=== PATIENT | male | born 1950 | race Caucasian/White ===

== ENCOUNTER 2017-11-01 18:58 | Emergency (ER) | payer OTHER ==
[2017-11-01] MEDS: HYDROCODONE/APAP (5/325) TAB PO (22:53)
[2017-11-01] MEDS: ERYTHROMYCIN 1 GM OPH OINT LEFT EYE (23:11)
== END 2017-11-02 00:01 | disposition home or self-care (01) ==
LOC: FTE 11-02 00:01
DX: H10.32 Unspecified acute conjunctivitis, left eye (principal); F17.210 Nicotine dependence, cigarettes, uncomplicated
CPT/HCPCS: 99283; Z7502

== ENCOUNTER 2017-11-02 16:04 | Emergency (ER) | payer OTHER ==
[2017-11-02] MEDS: OPHTHALMIC IRRIG SOLUTION 120 ML LEFT EYE (17:31)
== END 2017-11-02 17:46 | disposition home or self-care (01) ==
LOC: FTE 16:04
DX: H10.9 Unspecified conjunctivitis (principal); W22.8XXA Striking against or struck by other objects, initial encounter; Y92.9 Unspecified place or not applicable
CPT/HCPCS: 99283; Z7502